=== PATIENT | female | born 1995 | race Two or more races ===

== ENCOUNTER 2023-05-30 09:37 | Outpatient (CLI) | payer OTHER | END 2023-05-30 12:08 | disposition home or self-care (01) | LOC: PRENATAL 09:37 | PROVIDERS: ATTEND Obstetrics & Gynecology Maternal & Fetal Medicine | DX: O35.9XX0 Maternal care for (suspected) fetal abnormality and damage, unspecified, not applicable or unspecified (principal); O35.3XX0 Maternal care for (suspected) damage to fetus from viral disease in mother, not applicable or unspecified; Z3A.20 20 weeks gestation of pregnancy ==

== ENCOUNTER 2023-06-15 10:36 | Outpatient (CLI) | payer OTHER ==
[2023-06-15] MEDS ORDERED: PLANQUENIL (15:06)
[2023-06-15] MEDS ORDERED: CHILDREN'S ASPI81 MG PO (15:06)
[2023-06-15] MEDS ORDERED: PRENATABS RX T1 EACH PO (15:07)
== END 2023-06-15 12:00 | disposition home or self-care (01) ==
LOC: PRENATAL 10:36
PROVIDERS: ATTEND Obstetrics & Gynecology Maternal & Fetal Medicine
DX: O26.879 Cervical shortening, unspecified trimester (principal); Z3A.22 22 weeks gestation of pregnancy

== ENCOUNTER 2023-06-16 09:34 | Day surgery (SDC) | payer OTHER ==
[~2023-06-16 09:34] MED LIST: CHILDREN'S ASPI81 MG PO; PLANQUENIL; PRENATABS RX T1 EACH PO
[2023-06-16] MEDS ORDERED: INDOMETHACIN25 MG PO (15:15)
== END 2023-06-16 17:30 | disposition home or self-care (01) ==
LOC: CIR.AMB 09:34
PROVIDERS: ATTEND Obstetrics & Gynecology Maternal & Fetal Medicine
DX: O34.32 Maternal care for cervical incompetence, second trimester (principal); O26.872 Cervical shortening, second trimester; Z3A.22 22 weeks gestation of pregnancy; Z20.822 Contact with and (suspected) exposure to COVID-19

== ENCOUNTER 2023-07-27 14:01 | Outpatient (CLI) | payer OTHER ==
[~2023-07-27 14:01] MED LIST changes: +INDOMETHACIN25 MG PO
== END 2023-07-27 14:02 | disposition home or self-care (01) ==
LOC: PRENATAL 14:01
PROVIDERS: ATTEND Obstetrics & Gynecology Maternal & Fetal Medicine
DX: O26.849 Uterine size-date discrepancy, unspecified trimester (principal); O26.879 Cervical shortening, unspecified trimester; Z3A.28 28 weeks gestation of pregnancy

== ENCOUNTER → 2023-09-08 | Outpatient (CLI) | payer OTHER | END | disposition home or self-care (01) | LOC: PRENATAL 13:57 | PROVIDERS: ATTEND Obstetrics & Gynecology Maternal & Fetal Medicine | DX: O26.849 Uterine size-date discrepancy, unspecified trimester (principal); O36.8199 Decreased fetal movements, unspecified trimester, other fetus; Z3A.34 34 weeks gestation of pregnancy ==